=== PATIENT | female | born 2000 | race Hispanic/Latino ===

== ENCOUNTER 2022-12-09 23:55 | Inpatient (IN) | payer MEDICAID, OTHER ==
[2022-12-10 01:10] VITALS: BMI 34.0
[2022-12-10] MEDS ORDERED: Diphenoxylate HCl/Atropine Tablet PO PRN ×2 (01:30)
[2022-12-10] MEDS ORDERED: Zolpidem Tartrate 5 MG TAB PO PRN (01:30)
[2022-12-10] MEDS ORDERED: Ibuprofen 800 MG TAB PO PRN (01:30)
[2022-12-10] MEDS ORDERED: Lidocaine 1% (PF) 30 ML VIAL SC PRN (01:30)
[2022-12-10] MEDS ORDERED: Promethazine HCl 25 MG/ML VIAL IM PRN ×2 (01:30→08:12)
[2022-12-10] MEDS ORDERED: Tranexamic Acid 1,000 MG/10 ML VIAL IVP PRN (01:30)
[2022-12-10] MEDS ORDERED: Ondansetron PF 4 MG/2 ML Vial IVP PRN ×2 (01:30→08:12)
[2022-12-10] MEDS ORDERED: HYDROcodone/Acetaminophen 5/325 mg Tablet PO PRN ×3 (01:30→08:12)
[2022-12-10] MEDS ORDERED: Lactated Ringer's 1,000 ML IV SCH (01:30)
[2022-12-10] MEDS ORDERED: Misoprostol 200 MCG TAB RC PRN (01:30)
[2022-12-10] MEDS ORDERED: Oxytocin 30 units/NS 500 ML 500 ML IV SCH (01:30)
[2022-12-10] MEDS ORDERED: fentaNYL 50 mcg/mL 1 mL Vial SLOW IVP PRN (01:30)
[2022-12-10] MEDS ORDERED: Oxytocin 30 units/NS 500 ML 500 ML IVPB SCH (01:30)
[2022-12-10] MEDS ORDERED: hydrALAZINE 20 MG/ML VIAL SLOW IVP PRN ×2 (01:30→08:12)
[2022-12-10] MEDS ORDERED: Carboprost 250 MCG/ML AMP IM PRN (01:30)
[2022-12-10] MEDS ORDERED: Acetaminophen 500 MG TAB PO PRN (01:30)
[2022-12-10] MEDS ORDERED: Methylergonovine 0.2 MG/ML VIAL IM PRN (01:30)
[2022-12-10 02:12] LABS: Hematocrit 34.9 % (34.9-44.5); Hemoglobin 12.6 g/dL (12.0-15.5); Mean Corpuscular HGB CONC 36.1 g/dL (32.0-36.0); Mean Corpuscular Hemoglobin 31.2 pg (27.0-33.0); Mean Corpuscular Volume 86.4 fl (81.6-98.3); Mean Platelet Volume 11.1 fl (7.4-10.4); Platelet Count 236 10x3/uL (150-450); RBC Distribution Width 12.7 % (11.5-14.5); Red Blood Cell (RBC) Count 4.04 10x6/uL (3.90-5.03); White Blood Cell (WBC) Count 13.4 10x3/uL (3.5-10.5)
[2022-12-10 02:43] LABS: Hep B Surf Ag - L&D Non-Reactive S/CO (NonReactive)
[2022-12-10 02:44] LABS: Syphilis Antibody Nonreactive (Nonreactive); Syphilis Antibody Index 0.03 S/CO (<1.00 Non-Reactive)
[2022-12-10] MEDS ORDERED: Bisacodyl 10 MG SUPP PR PRN (08:12)
[2022-12-10] MEDS ORDERED: Milk Of Magnesia 30 ML UDCUP PO PRN (08:12)
[2022-12-10] MEDS ORDERED: Boostrix 0.5 ML (Tdap) VIAL (>/=7 yrs of age) IM ONE (08:12)
[2022-12-10] MEDS ORDERED: diphenhydrAMINE 25 MG CAP PO PRN (08:12)
[2022-12-10] MEDS ORDERED: Lanolin Ointment 7 GM TUBE TOP PRN (08:12)
[2022-12-10] MEDS ORDERED: Benzocaine-Menthol 82.5 ML CAN TOP PRN (08:12)
[2022-12-10] MEDS ORDERED: Ferrous Sulfate 325 MG TAB PO SCH (09:00)
[2022-12-10] MEDS: Docusate 100 MG CAP PO SCH ×2 (09:55→21:25)
[2022-12-10] MEDS: Prenatal Vitamin 1 TAB PO SCH (09:55)
[2022-12-10] MEDS: Ibuprofen 800 MG TAB PO SCH ×2 (13:11→21:25)
[2022-12-10] MEDS: Ferrous Sulfate 325 MG TAB PO SCH (15:31)
[2022-12-11] MEDS: Ibuprofen 800 MG TAB PO SCH ×3 (05:38→21:17)
[2022-12-11] MEDS: Ferrous Sulfate 325 MG TAB PO SCH ×2 (07:18→18:27)
[2022-12-11] MEDS: Prenatal Vitamin 1 TAB PO SCH (08:33)
[2022-12-11] MEDS: Docusate 100 MG CAP PO SCH ×2 (08:33→21:17)
[2022-12-12] MEDS: Ibuprofen 800 MG TAB PO SCH (05:40)
[2022-12-12] MEDS: Ferrous Sulfate 325 MG TAB PO SCH (07:14)
[2022-12-12] MEDS: Docusate 100 MG CAP PO SCH (08:02)
[2022-12-12] MEDS: Prenatal Vitamin 1 TAB PO SCH (08:02)
[2022-12-12 08:21] VITALS: BP 123/76; TEMP 98.8
== END 2022-12-12 11:20 | disposition home or self-care (01) | DRG 807 ==
LOC: CSHLD/OP 23:55 → CSHLD 12-10 02:44 → CSHPP 12-10 09:26
PROVIDERS: ADMIT Family Medicine; ATTEND Family Medicine
PROC: 10E0XZZ Delivery of Products of Conception, External Approach (ICD-10-PCS; principal; 2022-12-10)
PROC: 0KQM0ZZ Repair Perineum Muscle, Open Approach (ICD-10-PCS; 2022-12-10)
DX: O70.1 Second degree perineal laceration during delivery (principal); Z37.0 Single live birth; Z3A.39 39 weeks gestation of pregnancy
CPT/HCPCS: 36415; 85027; 86780; 86850; 86900; 86901; 87340; 99285; J2001; J2590; J3010